=== PATIENT | male | born 1990 | race Hispanic/Latino ===

== ENCOUNTER 2022-07-25 12:24 | Emergency (ER) | payer OTHER ==
[~2022-07-25] VITALS: Ht 172.7 cm; Wt 82.3 kg
[2022-07-25] MEDS ORDERED: KETOROLAC 60MG 2ML VIAL IM ONE (13:25)
[2022-07-25] MEDS ORDERED: diazePAM 10MG/2ML SYRINGE IM ONE (13:25)
[2022-07-25] MEDS ORDERED: VALI5TAB PO (15:00)
[2022-07-25] MEDS ORDERED: LIDO5DIS41 TD (15:01)
[2022-07-25] MEDS ORDERED: NAPR-837 PO (15:01)
[2022-07-25 15:12] VITALS: BP 130/66
== END 2022-07-25 15:14 | disposition home or self-care (01) ==
LOC: M ED 12:24
DX: S33.5XXA Sprain of ligaments of lumbar spine, initial encounter (principal); W01.0XXA Fall on same level from slipping, tripping and stumbling without subsequent striking against object, initial encounter; Y92.410 Unspecified street and highway as the place of occurrence of the external cause; Y93.02 Activity, running; Z79.899 Other long term (current) drug therapy; Z79.891 Long term (current) use of opiate analgesic
CPT/HCPCS: 72110; 96372; 99283; J1885; J3360